=== PATIENT | female | born 1970 ===

== ENCOUNTER 2017-07-21 08:05 | Outpatient (CLI) | payer OTHER | END 2017-07-21 08:06 | disposition home or self-care (01) | LOC: BICMRI 08:05 | PROVIDERS: ATTEND General Practice | DX: S33.5XXA Sprain of ligaments of lumbar spine, initial encounter (principal); M54.5 Low back pain; M47.896 Other spondylosis, lumbar region; M47.897 Other spondylosis, lumbosacral region | CPT/HCPCS: 72148 ==